=== PATIENT | female | born 1935 | race Caucasian/White ===

== ENCOUNTER 2016-05-06 12:20 | Outpatient (CLI) | payer OTHER ==
[2013-12-28 21:07] VITALS: BP 113/73
== END 2016-05-06 12:21 ==
LOC: CARD 12:20
PROVIDERS: ATTEND Internal Medicine Cardiovascular Disease
DX: I47.1 Supraventricular tachycardia (principal)
CPT/HCPCS: G0463

== ENCOUNTER 2016-07-23 08:04 | Outpatient (CLI) | payer OTHER ==
[2013-12-28 21:07] VITALS: BP 113/73
[2016-07-23 08:33] LABS: BASOPHILS % 0.3 (0.0-1.5); EOSINOPHILS % 2.9 % (0.0-6.8); LYMPHOCYTES # 2.2 # k/uL (0.6-4.0); MEAN CORPUSCULAR HEMOGLOBIN 30.8 pg (28.0-34.0); MONOCYTES # 0.4 # k/uL (0.0-0.9); MONOCYTES % 7.1 % (0.0-11.0)
[2016-07-23 09:06] LABS: eGFR (African) > 60; eGFR (Non-African) > 60
--- NOTE | 2016-07-23 18:59 | Diagnostic Imaging Report ---
RAQUEL CAPELLAN [facility] [address] [facility] [address] [address] Report Submission Date: Jul 23, 2016 9:17:43 AM CDT Patient Study Name: ANGELA BRADFORD Date: Jul 23, 2016 8:13:17 AM CDT Modality Type: CR Gender: F Description: CHEST : 37 Institution: [facility] Physician: RAQUEL CAPELLAN Chest - two views Clinical history: Preoperative evaluation. Findings: Examination of the chest in PA and lateral views with no prior films for comparison demonstrates the lungs to be clear. The cardiac silhouette is prominent and the aorta is atherosclerotic. There is a retrocardiac hiatal hernia. Degenerative changes are present throughout the thoracic spine. Impression: 1. Aortic atherosclerosis and cardiomegaly. 2. Hiatal hernia. Electronically signed on Jul 23, 2016 9:17:43 AM CDT by: Joaquín GUERRERO
== END 2016-07-23 08:05 ==
LOC: LAB 08:04
PROVIDERS: ATTEND Otolaryngology
DX: Z01.810 Encounter for preprocedural cardiovascular examination (principal)
CPT/HCPCS: 36415; 71020; 80053; 85025

== ENCOUNTER 2016-10-10 23:40 | Emergency (ER) | payer OTHER ==
[2016-10-11] MEDS: CEPHALEXIN 250 MG CAPSULE PO ONE (00:10)
--- NOTE | 2016-10-11 00:20 | ED Physician Documentation ---
General Adult - HISTORIAN Historian: patient - HPI Stated Complaint: lesion on leg Chief Complaint: General Adult Onset: days ago Timing: still present Severity: mild Further Comments: yes (Pt is an 81 yo female with a lesion on her R leg that she noticed one day ago. Pt does not recal being bitten by an insect or any other cause of the lesion. Lesion is 2 cm in diameter and is not raised. Pt expressed clear fluid from it earlier. It has not changed in size since pt noticed it one day ago. She has had no systemic sx. Lesion does not itch. Tetanus utd.) - ROS CONST: no problems EYES/ENT: none CVS/RESP: none GI/: none MS/SKIN/LYMPH: other (lesion on anterior R leg) - PAST HX Past History: other (hypothyroidism, HTN, HLD, GERD) Allergies/Adverse Reactions: Allergies Allergy/AdvReac Type Severity Reaction Status Date / Time No Known Allergies Allergy Verified 10/11/16 00:08 Home Medications: Ambulatory Orders Medication Instructions Recorded Aspir 81 81 mg PO DAILY u2 09/24/12 Metoprolol Tartrate [Lopressor] 50 mg PO BID 10/11/16 Potassium Bicarbonate/Cit AC 20 meq PO HS 10/11/16 [Effer-K 20 Meq Tablet Eff] amLODIPine BESYLATE [Norvasc] 5 mg PO HS 10/11/16 - SOCIAL HX Smoking History: quit greater than 1 year - FAMILY HX Family History: No - VITAL SIGNS Vital Signs: Vital Signs Temp Pulse Resp BP Pulse Ox 113/73 12/28/13 21:04 - REVIEWED ASSESSMENTS Nursing Assessment Reviewed: Yes Vitals Reviewed: Yes Progress - Progress Progress: ? brown recluse bite vs abscess. lesion is small and unchanged after 1 day. f/ u if significant enlargement or new sx. Rx Keflex 500 mg. Take one every 12 hrs for 7 days. General Adult Physical Exam - PHYSICAL EXAM GENERAL APPEARANCE: no distress NECK: normal inspection, supple RESPIRATORY: no resp distress, chest non-tender CVS: reg rate & rhythm, heart sounds normal BACK: normal inspection SKIN: other (2 cm lesion on anterior R leg, deep red-purple in color, spot washer color in center with possible fluid beneath. ? spider bite) NEURO: oriented X3 Discharge Clincal Impression: small abscess, leg, ? spider bite Referrals: Narda Ashraf MD [Primary Care Provider] - Home Medications: Ambulatory Orders Aspir 81 81 mg PO DAILY u2 09/24/12 Metoprolol Tartrate [Lopressor] 50 mg PO BID 10/11/16 Potassium Bicarbonate/Cit AC [Effer-K 20 Meq Tablet Eff] 20 meq PO HS 10/11/16 amLODIPine BESYLATE [Norvasc] 5 mg PO HS 10/11/16 Condition: Good Disposition: 01 HOME, SELF-CARE Decision to Admit: NO Decision Time: 23:57
[2016-10-11 00:33] VITALS: BP 156/82
== END 2016-10-11 00:20 | disposition home or self-care (01) ==
LOC: ED 23:40
DX: S80.861A Insect bite (nonvenomous), right lower leg, initial encounter (principal); L03.115 Cellulitis of right lower limb; W57.XXXA Bitten or stung by nonvenomous insect and other nonvenomous arthropods, initial encounter; Y93.9 Activity, unspecified; Y99.9 Unspecified external cause status
CPT/HCPCS: 99283

== ENCOUNTER 2017-05-12 11:51 | Outpatient (CLI) | payer OTHER | END 2017-05-12 11:53 | LOC: CARD 11:51 | PROVIDERS: ATTEND Internal Medicine Cardiovascular Disease | DX: I47.1 Supraventricular tachycardia (principal); Q25.49 Other congenital malformations of aorta; I10 Essential (primary) hypertension; E78.5 Hyperlipidemia, unspecified | CPT/HCPCS: G0463 ==

== ENCOUNTER 2017-11-17 11:42 | Outpatient (CLI) | payer OTHER | END 2017-11-17 11:47 | LOC: CARD 11:42 | PROVIDERS: ATTEND Internal Medicine Cardiovascular Disease | DX: I47.1 Supraventricular tachycardia (principal); I77.810 Thoracic aortic ectasia; I27.0 Primary pulmonary hypertension; R07.9 Chest pain, unspecified; I10 Essential (primary) hypertension; E78.5 Hyperlipidemia, unspecified; I71.2 Thoracic aortic aneurysm, without rupture | CPT/HCPCS: G0463 ==

== ENCOUNTER 2018-01-12 11:42 | Outpatient (CLI) | payer OTHER | END 2018-01-12 11:43 | LOC: CARD 11:42 | PROVIDERS: ATTEND Internal Medicine Cardiovascular Disease | DX: I47.1 Supraventricular tachycardia (principal); I77.810 Thoracic aortic ectasia; I27.20 Pulmonary hypertension, unspecified; I10 Essential (primary) hypertension; E78.5 Hyperlipidemia, unspecified | CPT/HCPCS: G0463 ==

== ENCOUNTER 2018-09-24 09:00 | Outpatient (CLI) | payer OTHER ==
--- NOTE | 2018-09-24 12:24 | Diagnostic Imaging Report ---
ERICK BONILLA (YRIS) - OP [facility] [address] [address] Report Submission Date: September 24, 2018 9:58:54 AM CDT Patient Study Name: ANGELA BRADFORD Date: September 24, 2018 12:00:00 AM CDT Modality Type: DEXA\OT Gender: F Description: DEXA : 37 Institution: [facility] Physician: ERICK BONILLA) - OP Examination: Bone density History: Assess bone mineralization Comparison exams: 28 March 2014 Technique: DEXA protocol Findings: Average bone mineral density from L1 through L4: 1.071 grams cm2. T score: -0.9 Average bone mineral density of the left femoral neck: 0.814 grams cm2. T score: -1.6 Average bone mineral density of the right femoral neck: 0.776 grams cm2. T score: -1.9 Impression: Normal lumbar spine mineralization for age Hip osteopenia. Electronically signed on September 24, 2018 9:58:54 AM CDT by: Lanre GUERRERO
== END 2018-09-24 09:03 ==
LOC: RAD 09:00
PROVIDERS: ATTEND Nurse Practitioner Family
DX: M85.859 Other specified disorders of bone density and structure, unspecified thigh (principal); M81.0 Age-related osteoporosis without current pathological fracture
CPT/HCPCS: 77080

== ENCOUNTER 2018-12-27 21:23 | Emergency (ER) | payer OTHER ==
--- NOTE | 2018-12-27 23:04 | ED Physician Documentation ---
Abdominal Pain - HISTORIAN Historian: patient - HPI Stated Complaint: Mid-Abdominal pain Chief Complaint: Abdominal Pain Onset: days ago Duration: waxing, waning Context: denies: out of country travel, bad food, recent trauma Severity: moderate Quality: dull Associated Symptoms: none Exacerbated by: movements Further Comments: yes (83 year old female patient presents with complaints of left sided abdominal pain, reports pain is worse with movement. Denies nausea, vomiting, fever, or diarrhea. Has a pessary in place. Patient is concerned it may be causing the discomfort. Has been able to eat and drink today with no problems.) - ROS CONST: no problems GI/: none CVS/RESP: none EYES/ENT: none MS/SKIN/LYMPH: none NEURO/PSYCH: none - SOCIAL HX Smoking History: cigarettes - FAMILY HX Family History: denies: none - PAST HX Past History: other (hypothyroidism, GERD) Other History: hypertension Home Medications: Ambulatory Orders Medication Instructions Recorded Aspir 81 81 mg PO DAILY u2 09/24/12 Metoprolol Tartrate [Lopressor] 25 mg PO BID 10/11/16 Potassium Bicarbonate/Cit AC 10 meq PO HS 10/11/16 [Effer-K 20 Meq Tablet Eff] amLODIPine BESYLATE [Norvasc] 10 mg PO HS 10/11/16 Esomeprazole Magnesium 40 mg PO DAILY 12/27/18 Furosemide 40 mg PO DAILY 12/27/18 Levothyroxine Sodium [Synthroid] 50 mcg PO DAILY 12/27/18 Allergies/Adverse Reactions: Allergies Allergy/AdvReac Type Severity Reaction Status Date / Time No Known Drug Allergies Allergy Unverified 09/24/12 07:55 - VITAL SIGNS Vital Signs: Vital Signs Temp Pulse Resp BP Pulse Ox 98.6 F 57 L 16 132/56 96 12/27/18 21:23 12/27/18 21:23 12/27/18 21:23 12/27/18 21:23 12/27/18 21:23 - REVIEWED ASSESSMENTS Nursing Assessment Reviewed: Yes Vitals Reviewed: Yes ED Results Lab/Radiology - Radiology Radiology Impressions: Obstructive series without chest x-ray Clinical history: Lower abdominal pain. Findings: Examination of the abdomen in supine and upright views demonstrates degenerative changes and dextroscoliosis in the lumbar vertebrae. Gas and stool are present in the colon. There is no evidence of obstruction or free air. Visualized visceral silhouettes are within normal limits. Impression: 1. Degenerative changes and scoliosis in the lumbar vertebrae. 2. No obstruction or free air. Electronically signed on Dec 27, 2018 11:21:03 PM CDT by: Joaquín Cuevas - Orders Orders: ED Orders Category Date Time Status ABD COMPLETE [RAD] Stat Exams 12/27/18 Taken Magnesium Hydroxide [Milk of Magnesia] Med 12/27/18 23:49 Discontinued 2,400 mg PO NOW ONE Abdominal Pain Physical Exam - Physical Exam General Appearance: mild distress EENT: eye inspection normal, JOHN RESPIRATORY: no resp distress, chest non-tender, breath sounds normal CVS: reg rate & rhythm, heart sounds normal, equal pulses, no murmur, no gallop, PMI nml, no JVD, no friction rub, 24 ABDOMEN: soft, no organomegaly, normal bowel sounds, no abdominal bruit, no distension, tenderness (left lateral abdominal wall tenderness with palpation; worse with movement. ) EXTREMITIES: non-tender, normal range of motion, no evidence of injury, no edema, J, [employer] NEURO: oriented X3, motor nml, sensation nml Vital Signs: Vital Signs Temp Pulse Resp BP Pulse Ox 98.6 F 57 L 16 132/56 96 12/27/18 21:23 12/27/18 21:23 12/27/18 21:23 12/27/18 21:23 12/27/18 21:23 Discharge Clincal Impression: Constipation Qualifiers: Constipation type: unspecified constipation type Qualified Code(s): K59.00 - Constipation, unspecified Referrals: Latrice Mayo PRN [Primary Care Provider] - 2 Days Additional Instructions: Constipation Increase the amount ofhigh-fiber foodsin your diet. Choose more whole grain breads, cereals and rice. Select more raw fruits and vegetables -- eat the peel, if appropriate. Drink six to eight glasses of water each day. No highly refined and processed foods. Over the counter Laxative as needed Return to the emergency department or call your doctor, if you are having severe abdominal pain, fever >101.0, or if there is blood in the vomit or diarrhea, or you cannot keep down liquids or solid food. Condition: Stable Disposition: 01 HOME, SELF-CARE Decision to Admit: NO Decision Time: 23:44
[2018-12-27] MEDS ORDERED: MAGNESIUM HYDROXIDE 2,400 MG/30 ML UDC PO ONE (23:49)
[2018-12-28 01:13] VITALS: BP 128/62
[2018-12-28 06:46] LABS: APPEARANCE,URINE CLEAR (CLEAR); COLOR,URINE YELLOW (YELLOW); OCCULT BLOOD,URINE NEGATIVE (NEGATIVE); PH URINE 6.5 (5.0 - 8.0); UROBILINOGEN URINE 0.2 Eu (0.2-1.0)
--- NOTE | 2018-12-29 12:32 | Diagnostic Imaging Report ---
NARAYAN MCFADDEN (SKIN CARE INSTRUCTOR) - ER [facility] [address] [facility].[address] [address] Report Submission Date: Dec 27, 2018 11:21:03 PM CDT Patient Study Name: ANGELA BRADFORD Date: Dec 27, 2018 10:55:26 PM CDT Modality Type: DX Gender: F Description: ABD COMPLETE : 37 Institution: [facility] Physician: NARAYAN MCFADDEN (SKIN CARE INSTRUCTOR) - ER Obstructive series without chest x-ray Clinical history: Lower abdominal pain. Findings: Examination of the abdomen in supine and upright views demonstrates degenerative changes and dextroscoliosis in the lumbar vertebrae. Gas and stool are present in the colon. There is no evidence of obstruction or free air. Visualized visceral silhouettes are within normal limits. Impression: 1. Degenerative changes and scoliosis in the lumbar vertebrae. 2. No obstruction or free air. Electronically signed on Dec 27, 2018 11:21:03 PM CDT by: Joaquín GUERRERO
== END 2018-12-27 23:56 | disposition home or self-care (01) ==
LOC: ED 21:23
DX: T18.108A Unspecified foreign body in esophagus causing other injury, initial encounter (principal)
CPT/HCPCS: 74019; 81002; 99282